=== PATIENT | male | born 1945 | race Caucasian/White ===

== ENCOUNTER → 2019-10-09 | Outpatient (REF) | payer MEDICARE, OTHER ==
[2019-10-16 18:05] LABS: PSA TOTAL 3.8 ng/mL (0.0-4.0)
== END ==
LOC: M SFHCCLAY 11:13
PROVIDERS: ATTEND Nurse Practitioner Women's Health
DX: R97.20 Elevated prostate specific antigen [PSA] (principal)

== ENCOUNTER → 2020-03-12 | Outpatient (CLI) | payer SELFPAY | LOC: M LABSMTC 09:51 | PROVIDERS: ATTEND Pediatrics | DX: Z11.59 Encounter for screening for other viral diseases (principal) ==

== ENCOUNTER → 2020-12-24 | Outpatient (REF) | payer MEDICARE, OTHER | LOC: M SFHCCLAY 09:39 | PROVIDERS: ATTEND Nurse Practitioner Women's Health | DX: Z12.5 Encounter for screening for malignant neoplasm of prostate (principal) ==

== ENCOUNTER → 2021-04-07 | Outpatient (REF) | payer MEDICARE, OTHER | LOC: M SFHCCLAY 09:40 | PROVIDERS: ATTEND Nurse Practitioner Women's Health | DX: R97.20 Elevated prostate specific antigen [PSA] (principal) ==

== ENCOUNTER → 2021-06-27 | Outpatient (REF) | payer MEDICARE, OTHER | LOC: M LAB REF 11:59 | PROVIDERS: ATTEND Internal Medicine | DX: E83.52 Hypercalcemia (principal) ==

== ENCOUNTER → 2021-09-11 | Outpatient (REF) | payer MEDICARE, OTHER ==
[2021-09-11 16:09] LABS: BASO % 0.6 % (0.0-1.0); EOS # 0.2 10^3/uL (0.0-0.5); EOS % 3.6 % (0.0-3.0); HEMATOCRIT 46.9 % (42.0-52.0); HEMOGLOBIN 15.5 g/dl (13.5-17.5); LYMPH # 1.7 10^3/uL (1.5-5.0); MEAN CORPUSCULAR HEMOGLOBIN 29.7 pg (27.0-33.0); MEAN CORPUSCULAR VOLUME 89.8 fl (80.0-96.0); MONO # 0.6 10^3/uL (0.0-0.8); MONO % 10.9 % (2.0-8.0); NEUTROPHILS # 2.8 10^3/uL (1.5-8.5); NEUTROPHILS % 52.7 % (36.0-66.0); PLATELET COUNT, AUTOMATED 191 10^3/uL (150-450); RED BLOOD COUNT 5.22 10^6/uL (4.30-6.10); WHITE BLOOD COUNT 5.3 10^3/uL (4.0-10.0)
[2021-09-11 16:47] LABS: ALT/SGPT 39 U/L (12-78); BILIRUBIN,TOTAL 0.9 MG/DL (0.2-1.0); BLOOD UREA NITROGEN 17 MG/DL (7-18); C REACTIVE PROTEIN QUANTITATIV 0.54 MG/DL (0.00-0.30); CALCIUM LEVEL 10.3 MG/DL (8.8-10.2); CARBON DIOXIDE LEVEL 28 MEQ/L (21-32); CHLORIDE LEVEL 103 MEQ/L (98-107); CREATININE FOR GFR 1.17 MG/DL (0.70-1.30); GLOMERULAR FILTRATION RATE > 60.0 (>42); GLUCOSE, FASTING 144 MG/DL (70-100); POTASSIUM SERUM 5.4 MEQ/L (3.5-5.1); RHEUMATOID FACTOR QUANT < 10.0 IU/ML (<15.0); SODIUM LEVEL 139 MEQ/L (136-145); TOTAL PROTEIN 7.4 GM/DL (6.4-8.2); URIC ACID 5.7 MG/DL (3.5-7.2)
[2021-09-11 19:11] LABS: ERYTHROCYTE SEDIMENTATION RATE 12 mm/hr (0-20)
== END ==
LOC: M LABDRAWC 15:32
PROVIDERS: ATTEND Physician Assistant
DX: M45.6 Ankylosing spondylitis lumbar region (principal)

== ENCOUNTER → 2021-10-31 | Outpatient (REF) | payer MEDICARE, OTHER | LOC: M SFHCCLAY 14:59 | PROVIDERS: ATTEND Nurse Practitioner Women's Health | DX: R97.20 Elevated prostate specific antigen [PSA] (principal); Z85.46 Personal history of malignant neoplasm of prostate ==

== ENCOUNTER → 2021-11-12 | Outpatient (CLI) | payer MEDICARE, BC, OTHER ==
[~2021-11-12] MED LIST: E-Z-GAS II EFFERVESCENT PACKET (SODIUM BICARB./CITRIC ACID/SIMETHICONE) As Ordered ONE; E-Z-HD 98% w/w 340GM SUSP BTL As Ordered ONE; E-Z-PAQUE 96% w/w SUSP 176GM BTL As Ordered ONE
== END ==
LOC: M RAD 09:00
PROVIDERS: ATTEND Internal Medicine
DX: K21.9 Gastro-esophageal reflux disease without esophagitis (principal); R13.10 Dysphagia, unspecified; R10.13 Epigastric pain

== ENCOUNTER → 2022-03-19 | Outpatient (REF) | payer MEDICARE, OTHER | LOC: M SFHCRHEU 10:33 | PROVIDERS: ATTEND Internal Medicine | DX: M54.9 Dorsalgia, unspecified (principal) ==

== ENCOUNTER → 2022-03-26 | Outpatient (CLI) | payer MEDICARE, OTHER | LOC: M PLAIMG 09:55 | PROVIDERS: ATTEND Internal Medicine | DX: M54.2 Cervicalgia (principal); M25.78 Osteophyte, vertebrae ==

== ENCOUNTER → 2022-03-26 | Outpatient (CLI) | payer MEDICARE, OTHER | LOC: M WHC 09:04 | PROVIDERS: ATTEND Internal Medicine | DX: M89.9 Disorder of bone, unspecified (principal) ==

== ENCOUNTER → 2022-05-04 | Outpatient (REF) | payer MEDICARE, OTHER ==
[2022-05-04 14:44] LABS: APPEARANCE, URINE MANUAL CLEAR (CLEAR); BILIRUBIN, URINE MANUAL NEGATIVE (NEGATIVE); BLOOD URINE MANUAL NEGATIVE (NEGATIVE); COLOR, URINE MANUAL YELLOW (YELLOW); GLUCOSE, URINE (UA) MANUAL 4+(1000 MG/DL) mg/dL (NEGATIVE); KETONE, URINE MANUAL NEGATIVE (NEGATIVE); LEUKOCYTE ESTERASE, URINE MAN NEGATIVE (NEGATIVE); NITRITE, URINE MANUAL NEGATIVE (NEGATIVE); PROTEIN, URINE MANUAL NEGATIVE (NEGATIVE); UROBILINOGEN, URINE MANUAL NORMAL (NORMAL)
== END ==
LOC: M SMT 12:50
PROVIDERS: ATTEND Urology
DX: R39.9 Unspecified symptoms and signs involving the genitourinary system (principal)

== ENCOUNTER → 2023-05-04 | Outpatient (CLI) | payer MEDICARE, OTHER, BC | LOC: M RAD 11:11 | PROVIDERS: ATTEND Internal Medicine | DX: M85.811 Other specified disorders of bone density and structure, right shoulder (principal); M85.812 Other specified disorders of bone density and structure, left shoulder ==

== ENCOUNTER → 2023-05-12 | Outpatient (REF) | payer MEDICARE, OTHER, BC | LOC: M LAB REF 11:50 | PROVIDERS: ATTEND Internal Medicine | DX: E03.9 Hypothyroidism, unspecified (principal) ==

== ENCOUNTER → 2023-06-03 | Outpatient (CLI) | payer MEDICARE, BC | LOC: M RAD 11:39 | PROVIDERS: ATTEND Internal Medicine | DX: E07.9 Disorder of thyroid, unspecified (principal) ==

== ENCOUNTER → 2024-05-05 | Outpatient (REF) | payer MEDICARE, BC ==
[2024-05-05 13:26] LABS: MAGNESIUM LEVEL 1.9 MG/DL (1.8-2.4)
[2024-05-05 13:30] LABS: TOTAL 25(OH) VITAMIN D 9.2 NG/ML (20.0-100.0)
== END ==
LOC: M SFHCRHEU 11:54
PROVIDERS: ATTEND Internal Medicine
DX: M89.9 Disorder of bone, unspecified (principal)

== ENCOUNTER → 2024-05-29 | Outpatient (CLI) | payer MEDICARE, BC | LOC: M WHC 10:43 | PROVIDERS: ATTEND Internal Medicine | DX: M81.0 Age-related osteoporosis without current pathological fracture (principal) ==

== ENCOUNTER → 2024-10-05 | Outpatient (REF) | payer MEDICARE, BC | LOC: M LAB REF 13:55 | PROVIDERS: ATTEND Physician Assistant Medical | DX: R10.84 Generalized abdominal pain (principal) ==

== ENCOUNTER → 2024-12-07 | Outpatient (CLI) | payer MEDICARE, BC ==
[~2024-12-07] MED LIST changes: -E-Z-GAS II EFFERVESCENT PACKET (SODIUM BICARB./CITRIC ACID/SIMETHICONE) As Ordered ONE; -E-Z-HD 98% w/w 340GM SUSP BTL As Ordered ONE; -E-Z-PAQUE 96% w/w SUSP 176GM BTL As Ordered ONE; +PROHANCE 279.3MG/ML 15ML VIAL ONE; +PROHANCE 279.3MG/ML 5ML VIAL ONE
== END ==
LOC: M PLAIMG 11:10
PROVIDERS: ATTEND Urology
DX: R93.89 Abnormal findings on diagnostic imaging of other specified body structures (principal); N40.0 Benign prostatic hyperplasia without lower urinary tract symptoms
CPT/HCPCS: 72197; A9576

== ENCOUNTER → 2024-12-15 | Outpatient (REF) | payer MEDICARE, OTHER | LOC: M LAB REF 13:44 | PROVIDERS: ATTEND Internal Medicine | DX: K75.81 Nonalcoholic steatohepatitis (NASH) (principal); G60.9 Hereditary and idiopathic neuropathy, unspecified ==

== ENCOUNTER → 2025-01-04 | Outpatient (REF) | payer MEDICARE, OTHER ==
[2025-01-04 12:25] LABS: INR 0.85
== END ==
LOC: M LAB REF 12:04
PROVIDERS: ATTEND Internal Medicine
DX: D69.2 Other nonthrombocytopenic purpura (principal); K75.81 Nonalcoholic steatohepatitis (NASH)

== ENCOUNTER → 2025-02-19 | Outpatient (CLI) | payer MEDICARE, BC | LOC: M PLAIMG 13:28 | PROVIDERS: ATTEND Internal Medicine | DX: R06.02 Shortness of breath (principal) ==

== ENCOUNTER → 2025-02-20 | Outpatient (REF) | payer MEDICARE, OTHER | LOC: M SMT 12:35 | PROVIDERS: ATTEND Urology | DX: N42.9 Disorder of prostate, unspecified (principal); C61 Malignant neoplasm of prostate ==